=== PATIENT | female | born 1955 | race American Indian/Alaskan Native ===

== ENCOUNTER 2018-10-31 10:27 | Emergency (ER) | payer BC ==
[2018-10-31 10:45] VITALS: BP 148/92
[2018-10-31] MEDS ORDERED: ZOFRAN IV ONE (11:34)
[2018-10-31] MEDS ORDERED: MORPHINE IV ONE (11:35)
--- NOTE | 2018-10-31 11:39 | Emergency Department Report ---
ED Abdominal Pain HPI - General Chief Complaint: Abdominal Pain Stated Complaint: RECTUM PAIN Time Seen by Provider: 10/31/18 11:28 Source: patient Mode of arrival: Ambulatory Limitations: No Limitations - History of Present Illness Initial Comments: Patient is 63 years old female with no significant past medical history. Patient presented to the ER complaining of lower abdominal pain and feeling off and is able to empty her bowel even though she does not have any history of constipation. Patient stated that she had a bowel movement yesterday and her bowel movement is always regular. Patient denied any nausea or vomiting. No fever or chills. MD Complaint: abdominal pain -: This morning Location: suprapubic Migration to: no migration Severity scale (0 -10): 6 Quality: aching, fullness - Related Data Allergies Allergy/AdvReac Type Severity Reaction Status Date / Time No Known Allergies Allergy Unverified 10/31/18 10:41 ED Review of Systems ROS: Stated complaint: RECTUM PAIN Other details as noted in HPI Comment: All other systems reviewed and negative Constitutional: denies: chills, fever Respiratory: denies: cough, orthopnea, shortness of breath, SOB with exertion, SOB at rest Gastrointestinal: abdominal pain Musculoskeletal: denies: back pain Neurological: denies: headache, weakness ED Past Medical Hx - Past Medical History Previous Medical History?: No - Surgical History Past Surgical History?: No - Social History Smoking Status: Current Some Day Smoker Substance Use Type: None ED Physical Exam - General Limitations: No Limitations General appearance: alert, in no apparent distress - Head Head exam: Present: atraumatic, normocephalic, normal inspection - Eye Eye exam: Present: normal appearance - ENT ENT exam: Present: normal exam, normal orophraynx, mucous membranes moist - Neck Neck exam: Present: normal inspection, full ROM. Absent: tenderness, meningismus, lymphadenopathy, thyromegaly - Respiratory Respiratory exam: Present: normal lung sounds bilaterally - Cardiovascular Cardiovascular Exam: Present: regular rate, normal rhythm, normal heart sounds - GI/Abdominal GI/Abdominal exam: Present: soft, normal bowel sounds. Absent: distended, tenderness, guarding, rebound, rigid - Extremities Exam Extremities exam: Present: normal inspection, full ROM, normal capillary refill - Neurological Exam Neurological exam: Present: alert, oriented X3, CN II-XII intact, normal gait, reflexes normal - Psychiatric Psychiatric exam: Present: normal mood - Skin Skin exam: Present: warm, intact, normal color ED Course Vital Signs 10/31/18 10/31/18 10/31/18 10:41 11:46 12:05 Temperature 97.9 F Pulse Rate 73 Respiratory 18 16 16 Rate Blood Pressure 148/92 O2 Sat by Pulse 100 Oximetry ED Medical Decision Making - Medical Decision Making Patient is 63 years old female with no significant past medical history. Patient presented to the ER complaining of lower abdominal pain and feeling off and is able to empty her bowel even though she does not have any history of constipation. Patient stated that she had a bowel movement yesterday and her bowel movement is always regular. Patient denied any nausea or vomiting. No fever or chills. I already explained to Ms. Phelps that her condition could be very serious medical or surgical problem including infection in the abdomen including appendicitis or bowel blockage or any other pathology in the abdomen. Miss Phelps stated that she just has constipation and she does not want blood or for CAT scan. Patient elected to sign AGAINST MEDICAL ADVICE. Patient is alert, oriented 3 and able to make a sound decision. Patient advised to follow up with her primary care physician as soon as possible and also advised to return to the ER if her symptoms get worse. Critical care attestation.: If time is entered above; I have spent that time in minutes in the direct care of this critically ill patient, excluding procedure time. ED Disposition Clinical Impression: Abdominal pain Disposition: DC-07 LEFT AGAINST MED ADVICE Is pt being admited?: No Condition: Stable Instructions: Abdominal Pain (ED) Referrals: ABBEY MARSH MD [Primary Care Provider] - 3-5 Days Forms: AMA Form
[2018-10-31 12:51] LABS: Bacteria,Urine 1+ /HPF (Negative); Bilirubin,Urine NEG (Negative); Blood,Urine SM (Negative); Color,Urine Yellow (Yellow); Mucus,Urine FEW /HPF; Protein,Urine <15 mg/dL mg/dL (Negative); Urobilinogen,Urine < 2.0 mg/dL (<2.0)
== END 2018-10-31 12:42 | disposition left against medical advice (07) ==
LOC: ED 10:27
DX: R10.30 Lower abdominal pain, unspecified (principal); F17.200 Nicotine dependence, unspecified, uncomplicated
CPT/HCPCS: 36415; 81001; 96374; 96375; 99283; J2270; J2405